=== PATIENT | male | born 1965 | race Caucasian/White ===

== ENCOUNTER 2020-11-17 02:13 | Emergency (ER) | payer MEDICARE ==
[~2020-11-17] VITALS: Ht 165.1 cm; Wt 114.3 kg
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
[2020-11-17] MEDS ORDERED: CONTRAST GIVEN. MC PRN (03:45)
[2020-11-17] MEDS ORDERED: MORPHINE SULFATE 10 MG/ML SYRINGE. SQ ONE ×2 (04:00→06:30)
[2020-11-17] MEDS ORDERED: IOHEXOL 300 MG/ML 75 ML VIAL. IV ONE (04:00)
[2020-11-17] MEDS ORDERED: IV RINGERS SOLUTION,LACTATED 1,000 ML IV SCH (04:15)
--- NOTE | 2020-11-17 04:15 | EKG ---
[address] [address] Test Date: 2020-11-17 Test Time: 04:06:24 Pat Name: KELL LARA Department: Room: Gender: M Recordist: : 1965 Requested By: TOMMY PEREZ Order Number: [id number] Reading MD: Measurements Intervals [place] Rate: 94 P: 51 VT: 142 QRS: 16 QRSD: 102 T: 96 QT: 388 QTc: 491 Interpretive Statements SINUS RHYTHM QRS(T) CONTOUR ABNORMALITY CONSIDER INFERIOR MYOCARDIAL DAMAGE ST & T ABNORMALITY, CONSIDER HIGH LATERAL ISCHEMIA OR LEFT VENTRICULAR STRAIN ABNORMAL ECG RI6.02 No previous ECG available for comparison
[2020-11-17 04:39] LABS: BASO # 0.1 x10^3/uL (0.0-0.2); BASO % 1 % (0-3); EOS # 0.2 x10^3/uL (0.0-0.7); EOS % 1 % (0-3); HEMATOCRIT 37.7 % (39.0-53.0); HEMOGLOBIN 12.6 g/dL (13.0-17.5); LYMPH # 4.2 x10^3/uL (1.0-4.8); LYMPH % 32 % (24-48); MEAN CORPUSCULAR HEMOGLOBIN 29 pg (25-35); MEAN CORPUSCULAR HGB CONC 34 g/dL (31-37); MEAN CORPUSCULAR VOLUME 87 fL (79-100); MONO # 1.2 x10^3/uL (0.0-1.1); MONO % 9 % (0-9); NEUT # 7.6 x10^3uL (1.8-7.7); NEUT % 57 % (31-73); PLATELET COUNT 263 x10^3/uL (140-400); RED BLOOD COUNT 4.33 x10^6/uL (4.30-5.70); RED CELL DISTRIBUTION WIDTH 14.3 % (11.5-14.5); WHITE BLOOD COUNT 13.2 x10^3/uL (4.0-11.0)
[2020-11-17 04:46] LABS: BUN ISTAT 23 mg/dL (8-26); POTASSIUM ISTAT 3.3 mmol/L (3.5-5.0); SODIUM ISTAT 141 mmol/L (135-145)
[2020-11-17 04:47] LABS: GLUCOSE ISTAT 145 mg/dL (60-99)
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
[2020-11-17 06:20] VITALS: BP 136/98
[2020-11-17 06:28] LABS: BILIRUBIN,URINE NEG (NEG); CLARITY,URINE CLEAR; COLOR,URINE YELLOW; GLUCOSE,URINE NEG (NEG); NITRITE,URINE NEG (NEG)
[2020-11-17 06:29] LABS: BACTERIA,URINE 0 /HPF (0-FEW); SQUAMOUS EPITHELIAL CELL,UR OCC /LPF; WBC,URINE 0 /HPF (0-4)
[2020-11-17 07:26] LABS: ALBUMIN 3.2 g/dL (3.4-5.0); CALCIUM 8.9 mg/dL (8.5-10.1); TOTAL PROTEIN 6.9 g/dL (6.4-8.2)
[2020-11-17 07:27] LABS: DIRECT BILIRUBIN 0.3 mg/dL (0.0-0.2); GFR 77.9; MAGNESIUM 1.9 mg/dL (1.8-2.4); POTASSIUM 3.6 mmol/L (3.5-5.1); TOTAL BILIRUBIN 0.4 mg/dL (0.2-1.0)
[2020-11-17] MEDS ORDERED: ERYTHROMYCIN 0.5% OPHTH OINTMENT 1GM TUBE. OS ONE (07:30)
[2020-11-17 13:03] LABS: BARBITURATES NEG (NEG); BENZODIAZEPINES NEG (NEG); CANNABINOIDS POS (NEG); COCAINE NEG (NEG); METHADONE NEG (NEG); OPIATES POS (NEG); PHENCYCLIDINE NEG (NEG)
[2020-11-17 13:04] LABS: AMPHETAMINE/METHAMPHETAMINE POS (NEG)
== END 2020-11-17 07:00 | disposition home or self-care (01) ==
LOC: ER 02:13
DX: S20.212A Contusion of left front wall of thorax, initial encounter (principal); S80.01XA Contusion of right knee, initial encounter; S60.221A Contusion of right hand, initial encounter; S00.93XA Contusion of unspecified part of head, initial encounter; H11.32 Conjunctival hemorrhage, left eye; Z88.5 Allergy status to narcotic agent; Y08.89XA Assault by other specified means, initial encounter; Y93.89 Activity, other specified; Y92.89 Other specified places as the place of occurrence of the external cause; Y99.8 Other external cause status
CPT/HCPCS: 36415; 70450; 71046; 71260; 72125; 73130; 73564; 74160; 80047; 80048; 80076; 80307; 81001; 83690; 83735; 84484; 85025; 93005; 96360; 96372; 99285; J2270; J7120; Q9967